=== PATIENT | male | born 1960 | race Caucasian/White ===

== ENCOUNTER 2021-01-12 16:49 | Emergency (ER) | payer SELFPAY ==
[~2021-01-12] VITALS: Ht 172.7 cm; Wt 81.6 kg
[2021-01-12 16:55] VITALS: BP 144/96
--- NOTE | 2021-01-12 17:00 | NUR ---
PATIENT AMBULATED TO BED 08
--- NOTE | 2021-01-12 17:01 | NUR ---
SAID AT BEDSIDE EVALUATING PATIENT
--- NOTE | 2021-01-12 17:05 | NUR ---
60 YEAR OLD MALE PRESENTED TO ER TODAY FOR SUTURE REMOVAL. PT STATES HE HAD ACCIDENT WITH A FORLIFT AND HAD TO GET SUTURES PLACED ABOVE LEFT EYEBROW. SITE IS WITHOUT REDNESS, INFLAMMATION, OR PUS WITH SUTURES INTACT. PT AOX4, BREATHING EVEN AND UNLABORED, SKIN WARM AND DRY. BED IN LOWEST POSITION, LOCKED, BED RAIL UPX1. PMH - DENIES ALLERGIES - NKA
[2021-01-12 17:23] VITALS: BP 144/96
--- NOTE | 2021-01-12 17:23 | NUR ---
radial pulse present +3 cap refill <3 sec in right hand after splint applied
--- NOTE | 2021-01-12 17:24 | NUR ---
Patient discharged with v/s stable. Written and verbal after care instructions about splint care, suture removal given and explained. Patient verbalized understanding. Ambulatory with steady gait. All questions addressed prior to discharge. Advised to follow up with PMD.
== END 2021-01-12 17:21 | disposition home or self-care (01) ==
LOC: MED 16:49
DX: S62.91XD Unspecified fracture of right hand, subsequent encounter for fracture with routine healing (principal); S01.112D Laceration without foreign body of left eyelid and periocular area, subsequent encounter; X58.XXXD Exposure to other specified factors, subsequent encounter
CPT/HCPCS: 99283